=== PATIENT | male | born 1965 | race Caucasian/White ===

== ENCOUNTER 2016-10-02 05:42 | Inpatient (IN) | payer OTHER ==
[2016-09-17 08:41] LABS: URINE BILIRUBIN NEGATIVE (Negative); URINE BLOOD TRACE (Negative); URINE COLOR YELLOW; URINE GLUCOSE-RANDOM* NEGATIVE (Negative); URINE KETONES NEGATIVE (Negative); URINE LEUKOCYTES-REFLEX NEGATIVE (Negative); URINE PROTEIN (DIPSTICK) NEGATIVE (Negative); URINE UROBILINOGEN 0.2 E.U./dl (0.2-1.0)
[2016-09-17 08:43] LABS: HEMATOCRIT 48.4 % (42.0-52.0); HEMOGLOBIN 16.4 gm/dL (14.0-18.0); MCHC 33.9 g/dL (28.0-37.0); MCV 82.5 fL (80.0-100.0); RBC 5.86 mil/uL (4.50-6.00); RDW 14.3 % (10.5-14.5); WBC 10.8 thou/uL (4.0-11.0)
[2016-09-17 08:46] LABS: ALBUMIN 4.1 g/dL (3.4-5.0); CALCIUM 8.8 mg/dL (8.5-10.1); CREATININE 1.2 mg/dL (0.6-1.3); POTASSIUM 3.8 mmol/L (3.5-5.1)
[2016-09-17 08:50] LABS: PROTIME 10.2 Seconds (9.3-11.4)
[~2016-10-02] VITALS: Ht 185.4 cm; Wt 97.1 kg
[2016-10-02] VITALS (7 sets, daily range): BP systolic 131–160; BP diastolic 62–86
--- NOTE | ~2016-10-02 | H ---
[facility] [address] [place] [address] HISTORY AND PHYSICAL Name: LAURA HOWARD Room #: 537-P [facility] IN M.R.#: [id number] Admission: 10/02/16 Attend Phys: Donny Wick MD Discharge: 10/02/16 Date of : 63 Report #: [id number] THIS REPORT FOR: //name// For History and Physical, please see office documentation/handwritten note in the patient's medical record. By: [id number] Donny Wick MD /jr
--- NOTE | ~2016-10-02 | O ---
[facility] [place] [address] OPERATIVE REPORT Name: LAURA HOWARD Room #: 537-P [facility] IN M.R.#: [id number] Admission: 10/02/16 Attend Phys: Donny Wick MD Discharge: Date of : 63 Report #: [id number] THIS REPORT FOR: //name// CC: Genny Wick DATE OF SERVICE: 10/02/2016 PREOPERATIVE DIAGNOSIS: Right knee osteoarthritis. POSTOPERATIVE DIAGNOSIS: Right knee osteoarthritis. PROCEDURE: Right total knee arthroplasty. SURGEON: Donny Wick MD. RECOVERY OPERATOR HELPER: Tiffani Boyer PA-C. ANESTHESIA: LMA with an adductor canal block. IMPLANTS: [employer]hew size 6 Oxinium Legion posterior stabilized femur, size 6 tibia, size 9 polyethylene, and size 35 patella. TOURNIQUET TIME: 68 minutes. ESTIMATED BLOOD LOSS: 25 mL. COMPLICATIONS: None. SPECIMENS: None. CONDITION UPON LEAVING THE OPERATING ROOM: Stable. INDICATIONS FOR PROCEDURE: The patient is a 51-year-old gentleman with right knee osteoarthritis. He had failed conservative treatment for this, and after discussion with him, he elected for right total knee arthroplasty. DESCRIPTION OF PROCEDURE: Risks, benefits, alternatives, and complications were discussed in detail with the patient including but not limited to risk of anesthesia, risk of damage to nerves, arteries, blood vessels, risk for infection, bleeding, risk for continued knee pain, and need for reoperation. An informed consent was obtained from the patient. Right knee was appropriately marked in the preoperative holding area. He was brought to the operating room, and placed in the supine position on the operating room table. LMA anesthesia was induced without complication. Tourniquet was placed on the right thigh. IV Ancef was given for preoperative antibiotics. Right lower extremity was prepped [address] [address] OPERATIVE REPORT Name: LAURA HOWARD Room #: 537-P [facility] IN ..#: [id number] Admission: 10/02/16 Attend Phys: Donny Wick MD Discharge: Date of : 63 Report #: [id number] and draped in the normal sterile fashion. Timeout was performed, properly identifying the patient and procedure, as well as the instrumentation and implants. All in the operating room were in agreement. Right lower extremity was exsanguinated, tourniquet was inflated. Tourniquet time was 68 minutes. A standard midline approach to the knee was made with #10 blade through the skin. Dissection was taken down to the fascia, and deep flaps were developed medially and laterally. Fresh #10 blade was used to make a medial parapatellar arthrotomy, and the knee was inspected, and there was extensive osteoarthritic change of the knee. Anterior horns of the meniscus were removed sharply. Patella was everted. The knee was flexed. ACL and PCL were removed sharply. Drill was used to gain access to the canal of the femur, and distal femoral cutting block was pinned in place. Distal femoral cut was made. The femur was sized, found to be of size 6. A size 6, 4-in-1 cutting block was placed. Anterior, posterior, and chamfer cuts were made. Attention was turned to the tibia. Knee was hyperflexed, and the remainder of the meniscus were removed with Bovie cautery. Drill was used to gain access to the canal of the tibia, and intramedullary alignment was used. Resection was based off the lateral plateau and tibial resection was made. Flexion and extension gaps were checked and found to be tight in extension, but good balance in flexion. A 2 mm of additional distal femur were taken, and chamfer cuts were redone. After this, the knee was well balanced in flexion and extension. Tibia was sized, found to be of size 6. A size 6 tibial trial was placed, size 6 femoral trial was placed, and the box cut was made. This was then trialed with a size 9 polyethylene and found to have good balance in flexion and extension both medially and laterally. 9 mm was taken off the posterior surface of the patella, and the size 35 patellar resurfacing button trial was placed. Knee was taken through range of motion, found to be stable, found to have good patellar tracking. Trial components were removed. Bony ends were thoroughly irrigated with normal saline. A final size 6 tibia, size 6 Legion Oxinium posterior stabilized femur, and a size 35 patella were cemented in place using standard cementation techniques. While the cement cured, a periarticular injection was placed consisting of morphine, ropivacaine, epinephrine, and Toradol. After the cement cured, the tourniquet was deflated. Hemostasis was again obtained with Bovie cautery. Wound was thoroughly irrigated. Final size 9 polyethylene was placed, and the fascia was closed with 0 Vicryl. Skin was closed with 2-0 Vicryl and 3-0 Monocryl. Dermabond and a dressing of Aquacel was applied. The patient tolerated this procedure well and went to the recovery room under the care of anesthesia postoperatively. <ELECTRONICALLY SIGNED> By: Donny Wick MD 10/02/16 1155 0923 1106 Donny Wick MD /nt
--- NOTE | ~2016-10-02 | EKG ---
[address] [address] ELECTROCARDIOGRAM REPORT Name: LAURA HOWARD Room #: [facility]#: [id number] Admission: Attend Phys: Donny Wick MD Discharge: Date of : 63 Report #: [id number] THIS REPORT FOR: //name// [facility] Test Date: 2016-09-17 Test Time: 08:37:55 Pat Name: LAURA HOWARD Department: Room: Gender: Human Resources Services Specialist: lashaun : 1965 Requested By: Donny Wick Order Number: [id number] MD: Ramez Mccann Measurements Intervals [place] Rate: 65 P: 62 AK: 147 QRS: -10 QRSD: 157 T: 41 QT: 430 QTc: 448 Interpretive Statements Sinus rhythm Left bundle branch block No previous ECG available for comparison Electronically Signed On 09-17-2016 9:23:36 CDT by Ramez Mccann [email or web address] <ELECTRONICALLY SIGNED> By: Ramez Mccann MD, [facility] 09/17/16 0923 0837 0837 Ramez Mccann MD, FACC /EPI
[~2016-10-02 05:42] MED LIST: IBUPROFEN 200200 M1 PO; MULTIVITAMINS1 EAC7 PO
[2016-10-02] MEDS ORDERED: MS CONTIN15 MG PO (15:48)
[2016-10-02] MEDS ORDERED: PERCOCET PO (15:48)
[2016-10-02] MEDS ORDERED: CVS BUFFERED A325 MG PO (15:48)
[2016-10-02] MEDS ORDERED: NEURONTIN 300300 M1 PO (15:49)
[2016-10-02] MEDS ORDERED: KEFLEX500 MG PO (15:50)
[2016-10-02] MEDS ORDERED: ULTRA-LIGHT RO1 EACH MC (15:51)
== END 2016-10-02 18:48 | disposition home or self-care (01) | DRG 470 ==
LOC: TBA 05:42 → 5S 11:12 → PRE 11:38 → 5S 18:48
PROVIDERS: Orthopaedic Surgery
PROC: 0SRC0J9 Replacement of Right Knee Joint with Synthetic Substitute, Cemented, Open Approach (ICD-10-PCS; principal; 2016-10-02)
DX: M17.11 Unilateral primary osteoarthritis, right knee (principal); M75.51 Bursitis of right shoulder; M75.101 Unspecified rotator cuff tear or rupture of right shoulder, not specified as traumatic; M19.011 Primary osteoarthritis, right shoulder; Z90.49 Acquired absence of other specified parts of digestive tract; Z88.6 Allergy status to analgesic agent
CPT/HCPCS: 10785; 50010; 50101; 50415; 50612; 50954; 51130; 51225; 51771; 52256; 53000; 53078; 53365; 54118; 56527; 56528; 57095; 62110; 62900; 70005